=== PATIENT | male | born 1955 | race Caucasian/White ===

== ENCOUNTER → 2020-01-07 07:14 | Outpatient (CLI) | payer OTHER ==
[~2020-01-07 07:14] MED LIST: ZESTRIL10 MG PO; [UNRECOGNIZED DRUG - OTHER] PO
== END | disposition home or self-care (01) ==
LOC: LAB 07:14
PROVIDERS: ATTEND Surgery
DX: R10.11 Right upper quadrant pain (principal); Z20.828 Contact with and (suspected) exposure to other viral communicable diseases

== ENCOUNTER 2020-01-07 07:50 | Outpatient (CLI) | payer OTHER | END 2020-01-07 07:53 | disposition home or self-care (01) | LOC: TOM 07:50 | PROVIDERS: ATTEND Emergency Medicine | DX: R10.11 Right upper quadrant pain (principal); R10.84 Generalized abdominal pain ==

== ENCOUNTER → 2020-01-28 | Outpatient (CLI) | payer OTHER | END | disposition home or self-care (01) | LOC: PPH VACUNA 09:00 | DX: Z23 Encounter for immunization (principal) ==

== ENCOUNTER 2020-03-31 09:49 | Outpatient (CLI) | payer OTHER | END 2020-03-31 15:00 | disposition home or self-care (01) | LOC: PPH VACUNA 09:49 | DX: Z23 Encounter for immunization (principal) ==

== ENCOUNTER → 2020-11-16 11:36 | Outpatient (CLI) | payer OTHER | END | disposition home or self-care (01) | LOC: LAB 11:36 | PROVIDERS: ATTEND Emergency Medicine Pediatric Emergency Medicine | DX: Z20.828 Contact with and (suspected) exposure to other viral communicable diseases (principal); Z11.52 Encounter for screening for COVID-19 ==

== ENCOUNTER 2021-01-08 08:00 | Outpatient (CLI) | payer OTHER | END 2021-01-08 08:30 | disposition home or self-care (01) | LOC: PPH VACUNA 08:00 | PROVIDERS: ATTEND Emergency Medicine Pediatric Emergency Medicine | DX: Z23 Encounter for immunization (principal) ==

== ENCOUNTER → 2021-04-01 | Emergency (ER) | payer OTHER ==
[~2021-04-01] VITALS: Ht 177.8 cm; Wt 97.5 kg
== END | disposition home or self-care (01) ==
LOC: ER 09:48
DX: R53.81 Other malaise (principal); I10 Essential (primary) hypertension

== ENCOUNTER 2021-07-13 08:00 | Outpatient (CLI) | payer OTHER | END 2021-07-13 08:30 | disposition home or self-care (01) | LOC: PPH VACUNA 08:00 | PROVIDERS: ATTEND Emergency Medicine Pediatric Emergency Medicine | DX: Z23 Encounter for immunization (principal) | CPT/HCPCS: 90686; G0008 ==

== ENCOUNTER 2022-05-12 11:48 | Outpatient (CLI) | payer OTHER | END 2022-05-12 12:24 | disposition home or self-care (01) | LOC: LAB 11:48 | PROVIDERS: ATTEND Internal Medicine | DX: U07.1 COVID-19 (principal); B34.1 Enterovirus infection, unspecified ==

== ENCOUNTER → 2022-05-13 | Outpatient (CLI) | payer OTHER | END | disposition home or self-care (01) | LOC: NUCLEAR 07:00 | PROVIDERS: ATTEND Internal Medicine | DX: I25.9 Chronic ischemic heart disease, unspecified (principal) | CPT/HCPCS: 78452; 93017; A9500 ==

== ENCOUNTER 2022-09-02 | Outpatient (CLI) | payer OTHER | END 2022-09-02 00:15 | disposition home or self-care (01) | LOC: PPH VACUNA | PROVIDERS: ATTEND Emergency Medicine Pediatric Emergency Medicine | DX: Z23 Encounter for immunization (principal) ==

== ENCOUNTER 2023-02-10 14:00 | Outpatient (CLI) | payer OTHER | END 2023-02-10 14:10 | disposition home or self-care (01) | LOC: PPH VACUNA 14:00 | PROVIDERS: ATTEND Emergency Medicine Pediatric Emergency Medicine | DX: Z23 Encounter for immunization (principal) | CPT/HCPCS: 90686; G0008 ==